=== PATIENT | male | born 1945 | race Caucasian/White ===

== ENCOUNTER → 2016-12-29 | Outpatient (CLI) | payer OTHER ==
[~2016-12-29] MED LIST: ASPIRIN EC81 M1 PO; CLARITIN10 MG PO; COQ-10100 MG PO; FLOMAX0.4 MG PO; LIVALO4 MG PO; NORCO 5-325 TA1 EACH PO; PROTONIX40 M1 PO
== END ==
LOC: RAD 11:29
DX: R05 Cough (principal)

== ENCOUNTER → 2017-07-18 | Outpatient (CLI) | payer OTHER, BC ==
[~2017-07-18] MED LIST changes: +FLOVENT HFA 4444 MCG INH; +TUMS PO
== END ==
LOC: MRI 10:14 → EDSTATUS 14:53
DX: R22.42 Localized swelling, mass and lump, left lower limb (principal)

== ENCOUNTER → 2018-09-25 | Outpatient (CLI) | payer OTHER | LOC: CAT 08:48 | DX: Z13.6 Encounter for screening for cardiovascular disorders (principal); I25.10 Atherosclerotic heart disease of native coronary artery without angina pectoris; E78.00 Pure hypercholesterolemia, unspecified ==

== ENCOUNTER → 2019-09-20 | Outpatient (CLI) | payer OTHER, BC | LOC: SJCVCIMAG 10:10 | DX: I87.2 Venous insufficiency (chronic) (peripheral) (principal); E78.5 Hyperlipidemia, unspecified; Z79.899 Other long term (current) drug therapy; Z87.891 Personal history of nicotine dependence ==

== ENCOUNTER → 2019-10-02 | Outpatient (CLI) | payer OTHER, BC | LOC: SJCVC 11:24 | PROVIDERS: ATTEND Nuclear Medicine Nuclear Cardiology | DX: I87.2 Venous insufficiency (chronic) (peripheral) (principal); I25.10 Atherosclerotic heart disease of native coronary artery without angina pectoris; E78.00 Pure hypercholesterolemia, unspecified ==

== ENCOUNTER → 2020-06-23 | Outpatient (CLI) | payer OTHER, BC | LOC: SJCVC 11:19 | PROVIDERS: ATTEND Internal Medicine Cardiovascular Disease | DX: I25.10 Atherosclerotic heart disease of native coronary artery without angina pectoris (principal); I10 Essential (primary) hypertension; E78.00 Pure hypercholesterolemia, unspecified; I87.2 Venous insufficiency (chronic) (peripheral); R93.1 Abnormal findings on diagnostic imaging of heart and coronary circulation; Z79.82 Long term (current) use of aspirin; Z79.899 Other long term (current) drug therapy; Z87.891 Personal history of nicotine dependence; Z72.89 Other problems related to lifestyle; Z88.8 Allergy status to other drugs, medicaments and biological substances ==

== ENCOUNTER → 2020-12-29 | Outpatient (CLI) | payer OTHER, BC | LOC: SJCVCIMAG 09:27 → SJCVC 11:47 → SJCVCIMAG 14:44 | PROVIDERS: ATTEND Internal Medicine Cardiovascular Disease | DX: I25.10 Atherosclerotic heart disease of native coronary artery without angina pectoris (principal); R06.00 Dyspnea, unspecified; R53.83 Other fatigue; E78.00 Pure hypercholesterolemia, unspecified; E78.5 Hyperlipidemia, unspecified; I10 Essential (primary) hypertension; Z79.899 Other long term (current) drug therapy ==